=== PATIENT | male | born 1995 | race Caucasian/White ===

== ENCOUNTER 2020-07-27 17:42 | Outpatient (REF) | payer OTHER, SELFPAY ==
[2020-07-31 08:21] LABS: SARS-CoV-2 Specimen Source Nasopharynx
[2020-07-31 11:12] LABS: SARS-CoV-2 RNA Indeterminate (Undetected)
== END 2020-07-27 18:02 ==
LOC: NCHCN 17:42
PROVIDERS: PCP Nurse Practitioner Family; Visit Provider Nurse Practitioner Family
DX: Z20.828 Contact with and (suspected) exposure to other viral communicable diseases (principal)
CPT/HCPCS: U0003

== ENCOUNTER 2020-12-05 18:29 | Emergency (ER) | payer BC, SELFPAY ==
[2020-12-05 18:38] VITALS: BP 163/70; PULSE 87; RESP 16; TEMP 36.5; O2SAT 97
--- NOTE | 2020-12-05 18:50 | W.ED.GENAD ---
Discharge Plan Disposition Patient Disposition: HOME Condition: Stable Discharge Details Clinical Impression: Pain in testicle, Hydrocele Primary Care Provider: None,None ED Provider: Babatunde Aldana Home Meds and New Rx's Prescriptions: No Action No Known Home Meds RF: 0 Discharge Instructions Instructions: Hydrocele (ED) Additional Instructions: I placed you on the follow up list to get set up with a urologist You can take 1000mg tylenol and 600mg ibuprofen every 6 hours as needed for pain if severe worsening pain or swelling return to the emergency department Medical Decision Making <Jocelyne Edmondson DO - Last Filed: 12/05/20 21:10> 1845 -- 25yo M presents for R testicular pain since 7am this morning. Pt appears nontoxic and comfortable. Normal-appearing scrotum. He does have tenderness at the base of the right testicle but otherwise testes appear normal to inspection. Consider testicular torsion. Will obtain screening labs, urinalysis and scrotal ultrasound. Discussed with radiology and Yasmin is available to come into the ED for scrotum US. Approximately arrival 7:50 PM. 1999 -- Case endorsed to Dr. Aldana to follow-up on labs and ultrasound and final disposition. Medical Records Medical records reviewed: Yes I reviewed the patient's medical records. <Babatunde Aldana MD - Last Filed: 12/05/20 20:55> Pt's u/s shows hydrocele and spermatoceles normal flow intact cremasteric reflex so doubt torsion. No uretheral discharge or dysuria so doubt std. Pain per patient not severe and feels comfortable with d/c. Will have him f/u with urology and return precautions given HPI <Jocelyne Edmondson DO - Last Filed: 12/05/20 21:10> General Mode of arrival: ambulatory. Date/Time Provider Initiated Documentation: 12/05/20 18:33. Limitations to Documentation: no limitations. Information obtained by: patient. HPI Narrative: Patient is a 25-year-old male who presents with right testicular pain since 7 AM this morning. Patient states the pain is within his testicles and feels like it is between the blood vessels. He states he had similar experience 5 years ago with a negative ultrasound. He denies any known injury, fever, nausea, vomiting, abdominal pain, dysuria, hematuria, frequency, discharge or known exposure to STDs. Patient states he is sexually active with one partner and last had intercourse 2 weeks ago with protection. Related Data Home Medications Medication Instructions Recorded Confirmed Unknown [No Known Home Meds] 12/05/20 12/05/20 Allergies Allergy/AdvReac Type Severity Reaction Status Date / Time No Known Allergies Allergy Unverified 12/05/20 18:42 General Stated Complaint: Abd Prob MAITE: 3 Review of Systems <Jocelyne Edmondson DO - Last Filed: 12/05/20 21:10> All systems reviewed & are unremarkable except as noted in HPI and below Constitutional Constitutional: Reports as per HPI, Denies chills and Denies fever(s) Eyes Eyes: Denies blurry vision ENT Ears, Nose, Mouth, and Throat: Denies dizziness, Denies sore throat and Denies throat swelling Cardiovascular Cardiovascular: Denies chest pain and Denies dyspnea Respiratory Respiratory: Denies cough and Denies dyspnea Gastrointestinal Gastrointestinal: Denies abdominal pain, Denies diarrhea and Denies vomiting Genitourinary Genitourinary: Denies hematuria, Denies dysuria and Reports testicular pain (right) Musculoskeletal Musculoskeletal: Denies back pain and Denies numbness Integumentary/Breasts Skin/Breast: Denies lesions and Denies rash Neurologic Neurologic: Denies dizziness, Denies localized weakness and Denies numbness Allergic/Immunologic Allergic/Immunologic: Denies throat swelling PFSH <Jocelyne Edmondson DO - Last Filed: 12/05/20 21:10> Medical History (Updated 12/05/20 @ 20:45 by Babatunde Aldana MD) No significant past medical history Surgical History (Updated 12/05/20 @ 19:39 by Jocelyne Edmondson DO) No significant past surgical history Social History Smoking/Tobacco Use Status: Never Smoking risk assessment performed?: Yes Substance use type: does not use Current gender identity: male Exam <Jocelyne Edmondson DO - Last Filed: 12/05/20 21:10> Const General: cooperative and healthy appearing Orientation: alert and awake [facility] Head: normal to inspection Ears: hearing grossly normal bilaterally and external ears normal General nose exam: external nose normal Face and sinus: normal facial exam Mouth: oral mucosae normal Teeth and gingiva: dentition normal Throat: posterior oropharynx normal Eyes General: appearance normal, both eyes and all related structures Eyelids: eyelids normal Pupils: PERRL EOM: EOM intact bilaterally Neck Neck: normal visual inspection Lymphatic: no lymphadenopathy noted Chest Chest: normal inspection of the chest Resp Effort & Inspection: normal respiratory effort and able to speak in complete sentences Auscultation: clear to auscultation bilaterally Cardio Rate: regular rate Rhythm: regular rhythm GI Inspection: normal to inspection Palpation: soft, not firm, no guarding, no hepatosplenomegaly, no masses and nontender Auscultation: normal bowel sounds Male General Exam: Yes normal external exam Penis: normal penis Testes: no masses, no testicular mass, no testicular swelling and testicular tenderness on the right (base) Back/Spine/Pelvis Back: no CVA tenderness Skin General skin exam: no rashes or lesions noted Neuro General: patient alert and patient awake Cognition: normal cognition Speech: speech normal Gait: normal gait Motor: muscle tone normal throughout Sensory Exam: no sensory deficits noted Extrem General: normal to inspection, full ROM and capillary refill normal Psych Appearance: grossly normal Mental Status: mental status grossly normal Speech and Movement: speech and movement normal Affect: normal affect Thought Process: normal Course <DO Alon eHndricks Last Filed: 12/05/20 21:10> Vital Signs Vital signs: Vital Signs Temperature 97.7 F 12/05/20 18:38 Pulse 87 12/05/20 18:38 Respiratory Rate 16 12/05/20 18:38 Blood Pressure 163/70 H 12/05/20 18:38 Pulse Oximetry 97 12/05/20 18:38 Temperature 97.7 F 12/05/20 18:38 Temperature Source Skin 12/05/20 18:38 Pulse 87 12/05/20 18:38 Respiratory Rate 16 12/05/20 18:38 Respiratory Effort Non-Labored 12/05/20 18:38 Blood Pressure 163/70 H 12/05/20 18:38 Blood Pressure Position Sitting 12/05/20 18:38 Pulse Oximetry 97 12/05/20 18:38 Oxygen Delivery Method Room Air 12/05/20 18:38 Oxygen Flow Rate 0 12/05/20 18:38 Pain Level 2 12/05/20 18:38 Sign Out <DO Alon Hendricks Last Filed: 12/05/20 21:10> Sign Out Data: Sign Out Comment: Follow-up on labs and ultrasound. If negative, plan for discharge to home with follow-up with urology. Last updated by Jocelyne Edmondson DO at 12/05/20 20:07
--- NOTE | 2020-12-05 19:00 | DI.US_ITS ---
EXAM: US SCROTUM CLINICAL HISTORY: R testicular pain, r/o torsion TECHNIQUE: Ultrasound of the testes performed using grayscale, color, and Doppler imaging. COMPARISON: No exams were available for comparison FINDINGS: RIGHT HEMISCROTUM: The right testicle exhibits normal size and echo architecture with no evidence of intratesticular mas s. Vascular flow was demonstrated within the right testicle, including arterial waveforms. Right epididymal head appears slightly enlarged. There is a 4 millimeter epididymal head cyst. Small right hydrocele. LEFT HEMISCROTUM: The left testicle exhibits normal size and echo architecture with no evidence of intratesticular mass . Vascular flow is demonstrated within the left testicle, including arterial waveforms. There is a 6-7 millimeter left epididymal head cyst. No other epididymal findings. Small left hydrocele also noted. IMPRESSION: 1. No evidence of testicular mass nor testicular torsion. 2. Small bilateral hydroceles. 3. Mild asymmetric enlargement of the right epididymal head, possibly related to inflammatory change such as epididymitis. 4. Small bilateral epididymal head cysts are noted. DATA REPOSITORY:
[2020-12-05 19:30] VITALS: BP 153/85
[2020-12-05 19:39] LABS: Abs Immature Grans 0.01 10^3/uL (0.0-0.06); Absolute Basophil Count 0.04 10^3/uL (0.0-0.2); Absolute Eosinophil Count 0.18 10^3/uL (0.0-0.7); Absolute Lymphocyte Count 3.08 10^3/uL (1.2-3.4); Absolute Monocyte Count 0.73 10^3/uL (0.1-0.8); Absolute Neutrophil Count 3.54 10^3/uL (1.2-6.7); Basophils % 0.5; Eosinophils % 2.4; HGB 15.7 g/dL (13.5-17.5); Immature Grans % 0.1; Lymphocytes % 40.6; MCH 28.1 pg (27.0-33.0); MCHC 34.1 % (32.0-36.0); MCV 82.4 fL (80-95); MPV 10.3 fL (8.0-11.0); Monocytes % 9.6; Neutrophils % 46.8; Nucleated RBC 0 %; Platelet Count 282 10^3/uL (130-400); RBC 5.58 10^6/uL (4.36-5.78); RDW 12.3 % (11.8-14.1); RDW-SD 36.8 fL; WBC 7.58 10^3/uL (4.4-10.8)
[2020-12-05 20:01] LABS: ALT 100 U/L (16-63); Albumin 4.5 g/dL (3.4-5.0); Alkaline Phosphatase 73 U/L (46-116); BUN 19 mg/dL (7-18); Bilirubin, Total 0.3 mg/dL (0.2-1.0); CREATININE 1.26 mg/dL (0.70-1.30); Calcium 9.1 mg/dL (8.5-10.1); Chloride 103 mmol/L (98-107); Glucose 116 mg/dL (74-106); Potassium 3.7 mmol/L (3.5-5.1); Sodium 138 mmol/L (136-145)
[2020-12-05 20:06] LABS: Bilirubin Negative (Negative); Blood Negative (Negative); Clarity Clear (Clear); Glucose 100 mg/dL (Negative); Ketones Negative (Negative); Leukocyte Esterase Negative (Negative); Nitrite Negative (Negative); Specific Gravity >= 1.030 (1.005-1.025); Urobilinogen 0.2 EU/dL (Up TO 0.2)
[2020-12-05 20:31] VITALS: BP 162/67; PULSE 66; O2SAT 94
[2020-12-05 20:47] LABS: AST 72 U/L (15-37)
--- NOTE | 2020-12-05 20:51 | DI.VRAD_ITS ---
PROCEDURE INFORMATION: Exam: US Scrotum Exam date and time: 12/05/2020 7:03 PM Age: 25 years old Clinical indication: Other: Intermittent right testicular pain since 6 am today. TECHNIQUE: Imaging protocol: Real-time ultrasound of the scrotum and contents with color Doppler and image documentation. COMPARISON: No relevant prior studies available. FINDINGS: Right testicle: Right testicle is normal in size, contour, and echotexture measuring 4.8 cm sagittal by 2.3 cm AP x 3.3 cm transverse. Normal color Doppler and spectral blood flow. No intratesticular mass. Left testicle: Left testicle is normal in size, contour, and echotexture measuring 4.5 cm sagittal by 2.5 cm AP x 3.6 cm transverse. Normal color Doppler and spectral blood flow. No intratesticular mass. Epididymides: Right epididymal head appears mildly enlarged measuring up to 1.9 cm in diameter with small 4 mm hypoechoic epididymal head cyst. Note is made of ovoid 7 mm hypoechoic left epididymal head cyst. Left epididymis is otherwise unremarkable. Scrotum: There is small anechoic right hydrocele. There is small anechoic left hydrocele. IMPRESSION: 1. No testicular torsion. 2. Mild asymmetric enlargement of the right epididymal head. Correlate clinically to exclude symptoms of superimposed infection/inflammation such as epididymitis. 3. Small bilateral hydroceles. 4. Small bilateral epididymal head cysts. Dictated and Authenticated by: Tony Palma MD. Ordering:LOUANN Casanova MD
--- NOTE | 2020-12-06 05:11 | NUR.NOTE ---
Referral to specialty clinics faxed for urology follow 12/06/2020 -05:10- Libl
== END 2020-12-05 21:04 | disposition home or self-care (01) ==
PROVIDERS: Physician Assistant; Emergency Provider Emergency Medicine
DX: N43.2 Other hydrocele (principal); N43.42 Spermatocele of epididymis, multiple
CPT/HCPCS: 36415; 80053; 99284; 76870; 81003; 85025

== ENCOUNTER 2021-07-05 18:39 | Outpatient (REF) | payer BC, SELFPAY ==
[2021-07-07 16:01] LABS: COVID-19 RT-PCR UVMMC Result Negative (Negative)
== END 2021-07-05 18:40 | disposition home or self-care (01) ==
LOC: LBN 18:39
PROVIDERS: PCP Physician Assistant Medical; Visit Provider Physician Assistant Medical
DX: Z20.822 Contact with and (suspected) exposure to COVID-19 (principal); J06.9 Acute upper respiratory infection, unspecified
CPT/HCPCS: U0003